=== PATIENT | female | born 1965 | race Caucasian/White ===

== ENCOUNTER → 2016-12-04 | Outpatient (CLI) | payer OTHER ==
--- NOTE | 2016-12-05 11:13 | MM ---
Reason for exam: screening (asymptomatic). Last mammogram was performed 1 year and 2 months ago. History: Patient is postmenopausal and is nulliparous. Family history of breast cancer in mother at age 67. Physical Findings: A clinical breast exam by your physician is recommended on an annual basis and results should be correlated with mammographic findings. MG 3D Screening Mammo W/Cad Bilateral CC and MLO view(s) were taken. Prior study comparison: October 09, 2015, bilateral MG screening mammo w CAD. September 06, 2014, bilateral MG screening mammo w CAD. September 05, 2013, bilateral digital screening mammo w/CAD. The breast tissue is almost entirely fat. No significant changes when compared with prior studies. ASSESSMENT: Negative, BI-RAD 1 RECOMMENDATION: Routine screening mammogram of both breasts in 1 year.
== END | disposition home or self-care (01) ==
LOC: RADMAMWWP 15:46
PROVIDERS: ATTEND Family Medicine
DX: Z12.31 Encounter for screening mammogram for malignant neoplasm of breast (principal)
CPT/HCPCS: 77063; G0202

== ENCOUNTER → 2017-08-06 | Outpatient (CLI) | payer OTHER ==
[2017-08-06 21:17] LABS: Hemoglobin A1C 6.4 % (4.2-6.1)
== END | disposition home or self-care (01) ==
LOC: LABWHC1 11:37
PROVIDERS: ATTEND Family Medicine
DX: E11.9 Type 2 diabetes mellitus without complications (principal)
CPT/HCPCS: 36415; 83036

== ENCOUNTER → 2018-01-09 | Outpatient (CLI) | payer OTHER ==
--- NOTE | 2018-01-11 12:17 | MM ---
Reason for exam: screening (asymptomatic). Last mammogram was performed 1 year and 1 month ago. History: Patient is postmenopausal and is nulliparous. Family history of breast cancer in mother at age 67. Physical Findings: A clinical breast exam by your physician is recommended on an annual basis and results should be correlated with mammographic findings. MG 3D Screening Mammo W/Cad Bilateral CC and MLO view(s) were taken. Prior study comparison: December 04, 2016, bilateral MG 3d screening mammo w/cad. October 09, 2015, bilateral MG screening mammo w CAD. There are scattered fibroglandular densities. Finding: There are stable typically benign calcifications in the upper inner quadrant of the right breast. No suspicious abnormality. No significant changes in finding since December 04, 2016 and October 09, 2015. ASSESSMENT: Benign, BI-RAD 2 RECOMMENDATION: Routine screening mammogram of both breasts in 1 year.
== END | disposition home or self-care (01) ==
LOC: RADMAMWWP 10:16
PROVIDERS: ATTEND Family Medicine
DX: Z12.31 Encounter for screening mammogram for malignant neoplasm of breast (principal)
CPT/HCPCS: 77063; 77067

== ENCOUNTER → 2019-02-25 | Outpatient (CLI) | payer OTHER ==
--- NOTE | 2019-03-01 09:39 | MM ---
Reason for exam: screening (asymptomatic). Last mammogram was performed 1 year and 2 months ago. History: Patient is postmenopausal and is nulliparous. Family history of breast cancer in mother at age 67. Physical Findings: A clinical breast exam by your physician is recommended on an annual basis and results should be correlated with mammographic findings. MG 3D Screening Mammo W/Cad Bilateral CC and MLO view(s) were taken. Prior study comparison: January 09, 2018, bilateral MG 3d screening mammo w/cad. December 04, 2016, bilateral MG 3d screening mammo w/cad. There are scattered fibroglandular densities. No significant changes when compared with prior studies. ASSESSMENT: Benign, BI-RAD 2 RECOMMENDATION: Routine screening mammogram of both breasts in 1 year.
== END | disposition home or self-care (01) ==
LOC: RADMAMWWP 13:51
PROVIDERS: ATTEND Family Medicine
DX: Z12.31 Encounter for screening mammogram for malignant neoplasm of breast (principal)
CPT/HCPCS: 77063; 77067

== ENCOUNTER 2019-04-08 07:19 | Day surgery (SDC) | payer OTHER ==
[2019-04-07 08:55] VITALS: BMI 34.7
[~2019-04-08 07:19] MED LIST: LACTATED RINGERS 1,000 ML IV SCH
[2019-04-08 07:54] VITALS: TEMP 96.7
[2019-04-08 07:57] LABS: Glucose,Whole Blood 116 mg/dL (75-99)
[2019-04-08] MEDS ORDERED: MIDAZOLAM 2 MG/2 ML VIAL ONE (08:27)
[2019-04-08] MEDS ORDERED: PROPOFOL 10 MG/ML 20 ML VIAL IV ONE (08:27)
[2019-04-08] MEDS ORDERED: fentaNYL (PF) 50 MCG/ML 2 ML AMP ONE (08:27)
--- NOTE | 2019-04-08 08:48 | P.PCN ---
Date of Procedure: 04/08/19 Procedure(s) Performed: Brief history: Patient is a pleasant 54-year-old white female, scheduled for an elective upper endoscopy as well as colonoscopy as a part of evaluation of history of GERD and surveillance of ulcerative colitis. 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 She is being maintained on balsalazide 3 tablets twice daily. If he has been having severe diarrhea but generally from 10-12 a day which are loose to watery in consistency and occasional blood in the stool. Procedure performed: Esophagogastroduodenoscopy with biopsy Colonoscopy with biopsy Preoperative diagnosis: GERD/history of ulcerative colitis/chronic diarrhea Anesthesia: [facility] [place] Procedure: After informed consent was obtained from the patient was brought into the endoscopy unit and IV sedation was administered by anesthesia under continuous monitoring. Initially upper endoscopy was done. The Olympus GF 160 video endoscope was inserted inserted into the mouth and esophagus intubated without any difficulty and was gradually advanced into the stomach and duodenum and carefully examined. The bulb and second part of the duodenum appeared normal. The scope was then withdrawn into the stomach adequately insufflated with air and upon careful examination the antrum and body, cardia and fundus appeared normal. Multiple small gastric polyps in the body and one in the antrum which was biopsied. The scope was then withdrawn into the esophagus. The GE junction was located at 40 cm to the incisors. It appeared regular with no erythema erosions or ulcerations. Rest of the esophagus appeared normal. Patient tolerated the procedure well. At this time the patient continued to remain sedation. Initial digital rectal examination was normal. Olympus CF 160 video colonoscope was then inserted into the rectum and gradually advanced to the cecum without any difficulty. Careful examination was performed as the scope was gradually being withdrawn. The prep was excellent. The cecum, ascending colon, transverse colon, had mild patchy areas of erythema and some granularity consistent with active colitis and biopsies were done from this area. There was moderate to severe colitis involving the descending colon, sigmoid colon and rectum with mucosal erythema, friability, granularity and spontaneous oozing and multiple biopsies were done from this area.. Retroflexion was performed in the rectum and no lesions were noted. Patient tolerated the procedure well. Impression: 1. Upper endoscopy revealed multiple small gastric polyps status post biopsy 2. Colonoscopy revealed diffuse pancolitis with mucosal erythema friability and granularity and spontaneous oozing mostly involving the rectum, sigmoid colon and left colon with mild involvement in the right colon. Status post multiple biopsies. Recommendations: Findings of this examination were discussed with the patient as well as a family. She was advised to follow with the biopsy results. She was advised to increase the balsalazide 3 capsules 3 times daily. She'll be started on oral prednisone 40 mg daily and would was advised to taper by 5 mg every week. She'll be seen in office in 2-3 weeks.
[2019-04-08 09:17] VITALS: BP 123/73; PULSE 90; RESP 18
== END 2019-04-08 09:25 | disposition home or self-care (01) ==
LOC: ORWHC2ENDO 07:19
PROVIDERS: ATTEND Internal Medicine Gastroenterology
DX: K31.7 Polyp of stomach and duodenum (principal); K29.50 Unspecified chronic gastritis without bleeding; K52.9 Noninfective gastroenteritis and colitis, unspecified; E11.9 Type 2 diabetes mellitus without complications; I10 Essential (primary) hypertension; Z79.84 Long term (current) use of oral hypoglycemic drugs; Z79.890 Hormone replacement therapy; Z79.899 Other long term (current) drug therapy; Z91.030 Bee allergy status
CPT/HCPCS: 88305; 45380; 43239; J2250; J3010; J2704

== ENCOUNTER → 2019-05-17 | Outpatient (CLI) | payer OTHER ==
[2019-05-17 18:36] LABS: Hepatitis B Core IgM Non-Reactive (Non-Reactive)
[2019-05-17 18:37] LABS: Hepatitis A Antibody IgM Non-Reactive (Non-Reactive)
[2019-05-17 21:59] LABS: Hemoglobin A1C 8.1 % (4.0-6.0)
== END | disposition home or self-care (01) ==
LOC: LABWHC1 11:09
PROVIDERS: ATTEND Physician Assistant
DX: E11.9 Type 2 diabetes mellitus without complications (principal); K51.20 Ulcerative (chronic) proctitis without complications
CPT/HCPCS: 36415; 80074; 83036; 86480

== ENCOUNTER → 2020-01-13 | Outpatient (CLI) | payer OTHER ==
[2020-01-13 16:24] LABS: African American GFR (CKD) 97.6 (60.0-200.0); Anion Gap 8.3 mmol/L (4.00-12.00); BUN/Creat Ratio 21.25 Ratio (12.00-20.00); Calcium 8.7 mg/dL (8.7-10.3); Carbon Dioxide 27.7 mmol/L (21.6-31.8); Chol/HDL Ratio 2.58; LDL Cholesterol,Calculated 93.6 mg/dL (0.0-131.0); Non-African American GFR(CKD) 84.2 (60.0-200.0); Potassium 4.3 mmol/L (3.5-5.5); VLDL Calculation 10.4 mg/dL (5.00-40.00)
== END | disposition home or self-care (01) ==
LOC: LABWHC1 11:07
PROVIDERS: ATTEND Physician Assistant
DX: I10 Essential (primary) hypertension (principal); E78.5 Hyperlipidemia, unspecified
CPT/HCPCS: 36415; 80048; 80061

== ENCOUNTER → 2020-05-18 | Outpatient (CLI) | payer OTHER ==
[2020-05-18 21:43] LABS: Hemoglobin A1C 6.9 % (4.0-6.0)
== END | disposition home or self-care (01) ==
LOC: LABWHC1 11:56
PROVIDERS: ATTEND Family Medicine
DX: E11.9 Type 2 diabetes mellitus without complications (principal)
CPT/HCPCS: 36415; 83036

== ENCOUNTER → 2020-08-01 | Outpatient (CLI) | payer OTHER ==
[2020-08-01 10:15] VITALS: BP 126/82; PULSE 77; RESP 18; TEMP 98.1
--- NOTE | 2020-08-01 11:06 | P.HPOB ---
History of Present Illness H&P Date: 08/01/20 Chief Complaint: The patient is here for her routine gynecologic exam and ma mmogram. This is a 54-year-old G0 with an LMP of 2000. The patient is here to establish with this office. It has been about 6 years since her last pelvic exam. She is without gynecologic complaints and denies any postmenopausal bleeding. Review of Systems Weight 10 still fluctuate by plus or minus 5-10 pounds. She denies respiratory or cardiac problems. GI: Occasional symptoms from her ulcerative colitis. Past Medical History Past Medical History: Diabetes Mellitus, GERD/Reflux, Hyperlipidemia, Hypertension, Osteoarthritis (OA), Sleep Apnea/CPAP/BIPAP, Thyroid Disorder Additional Past Medical History / Comment(s): Type 2 diabetes, seasonal ALLERGIES, ulcerative colitis, IBS, eczema rash, carpal tunnel syndrome, herniated disc, osteopenia, and hypothyroidism. 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 Premature menopause in her 30s. History of Any Multi-Drug Resistant Organisms: None Reported Past Surgical History: Cholecystectomy, Orthopedic Surgery Additional Past Surgical History / Comment(s): lt trigger thumb sx, laparoscopy, colonoscopy 2019(next after 1yr). Past Anesthesia/Blood Transfusion Reactions: Postoperative Nausea & Vomiting (PONV) Past Psychological History: No Psychological Hx Reported Smoking Status: Never smoker Past Alcohol Use History: Rare (Once a year) Past Drug Use History: None Reported Additional History: She is single and is not seeing anybody at this time. She has not been sexually active for many years. 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 - Past Family History Mother Family Medical History: Cancer, Coronary Artery Disease (CAD) Additional Family Medical History / Comment(s): breast cancer, CABG 5 vessels Father Family Medical History: Cancer, Diabetes Mellitus Additional Family Medical History / Comment(s): prostate cancer Brother(s) Family Medical History: Myocardial Infarction (ID) Sister(s) Family Medical History: Cancer, Hypertension, Neurologic Disorder Additional Family Medical History / Comment(s): MS and breast cancer. Medications and Allergies Home Medications Medication Instructions Recorded Confirmed Type Ascorbic Acid [Vitamin C with Nina 1,000 mg PO DAILY 04/07/19 04/08/19 History Hips] Atorvastatin [Lipitor] 40 mg PO DAILY 04/07/19 04/08/19 History Balsalazide Disodium [Colazal] 3 tab PO BID 04/07/19 04/08/19 History Cetirizine HCl [Zyrtec] 10 mg PO DAILY 04/07/19 04/08/19 History Cinnamon Bark [Cinnamon] 500 mg PO DAILY 04/07/19 04/08/19 History Dicyclomine HCl 20 mg PO QID 04/07/19 04/08/19 History Ertugliflozin Pidolate [Steglatro] 15 mg PO DAILY 04/07/19 04/08/19 History Fiber Well 5 gm PO DAILY 04/07/19 04/08/19 History Gabapentin [Neurontin] 100 mg PO BID 04/07/19 04/08/19 History Levothyroxine Sodium [Synthroid] 25 mcg PO DAILY 04/07/19 04/08/19 History Losartan [Cozaar] 50 mg PO DAILY 04/07/19 04/08/19 History Montelukast [Singulair] 10 mg PO DAILY 04/07/19 04/08/19 History Multivitamin [Multivitamins Adult 1 each PO DAILY 04/07/19 04/08/19 History Gummies] Omeprazole [PriLOSEC] 20 mg PO AC-BRKFST 04/07/19 04/08/19 History Pioglitazone HCl [Actos] 30 mg PO HS 04/07/19 04/08/19 History Repaglinide 0.5 mg PO BID 04/07/19 04/08/19 History Triamcinolone 0.1% Ointment 1 dose TOPICAL BID 04/07/19 04/08/19 History [Kenalog] Wheat Dextrin [Benefiber] 1 each PO DAILY 04/07/19 04/08/19 History sitaGLIPtin [Januvia] 100 mg PO DAILY 04/07/19 04/08/19 History Allergies Allergy/AdvReac Type Severity Reaction Status Date / Time bee venom protein (honey bee) Allergy Swelling Verified 08/01/20 10:15 Exam Vital Signs Temp Pulse Resp BP Pulse Ox 08/01/20 10:13 98.1 F 77 18 126/82 98 Intake and Output 07/31/20 08/01/20 08/01/20 22:59 06:59 14:59 Other: Weight 83.461 kg Height 5 feet 0 inches, weight 184 pounds, BMI 35.9. This is a well-developed well-nourished white female who is alert and oriented times 3 in no acute distress. HEENT: Within normal limits. NECK: Supple without mass or thyromegaly. CHEST AND LUNGS: Clear to auscultation. HEART: Regular rate and rhythm. BREASTS: Are without mass or discharge. AXILLARY EXAM: Negative for adenopathy. BACK: Negative for CVA tenderness. ABDOMEN: Soft, nontender, without palpable masses. PELVIC EXAM: Normal external genitalia with mild atrophy. Cervix and vagina appear normal with mild to moderate atrophy. The cervix is somewhat stenotic secondary to atrophy. There is no unusual discharge. There is no evidence of prolapse. The uterus is midposition, nongravid size and nontender. There are no palpable adnexal masses or tenderness. RECTAL EXAM: Rectovaginal exam is negative for mass or tenderness and is negative for occult blood. EXTREMITIES: Nontender. IMPRESSION: 1. 54-year-old menopausal female with normal gynecologic exam. 2. History of premature menopause. 3. History of osteopenia currently on medication as prescribed by her PCP. 4. Family history of breast cancer in her mother and sister. PLAN: 1. Pap smear was performed. 2. Self breast awareness was discussed with the patient. 3. Screening mammogram will be done today. 4. Genetic cancer screening was offered because of her family history of breast cancer in her mother and sister. She is declining this at this time, but states she may consider in the future. She was instructed to call if she changes her mind about this. 5. Osteoporosis prevention was discussed. I have stressed the importance of adequate calcium, vitamin D and regular exercise. Recommended amounts of calcium and vitamin D were also discussed. She will use the treatment as prescribed by her PCP and will do bone density testing through her PCP. 6. She was advised to return in one year for her annual well woman exam.
== END | disposition home or self-care (01) ==
LOC: WWCWWP 09:50
PROVIDERS: ATTEND Obstetrics & Gynecology
DX: Z53.9 Procedure and treatment not carried out, unspecified reason (principal)

== ENCOUNTER → 2020-08-22 | Outpatient (CLI) | payer OTHER ==
[2020-08-22 12:09] VITALS: BP 117/78; PULSE 64; RESP 18; TEMP 98.2
--- NOTE | 2020-08-22 13:19 | P.PN ---
Progress Note - Text Progress Note Date: 08/22/20 The patient is here for a repeat Pap smear. The Pap smear that was done on 08/22/2020 was canceled because of the thin prep vial was . Blood pressure 117/78, height 4 feet 11-1/2 inches, weight 188 pounds, BMI 37. Temperature 98.2, pulse 64, pulse oximeter 100%. Cervix and vagina reveal mild to moderate atrophy. The cervix is somewhat stenotic secondary to atrophy. There is no unusual discharge. Impression: Repeat Pap smear due to cytology medium. Plan: Await Pap smear cytology.
== END | disposition home or self-care (01) ==
LOC: WWCWWP 11:53
PROVIDERS: ATTEND Obstetrics & Gynecology
DX: Z53.9 Procedure and treatment not carried out, unspecified reason (principal)

== ENCOUNTER → 2021-08-02 | Outpatient (CLI) | payer OTHER ==
[2021-08-02 19:54] LABS: Hemoglobin A1C 6.4 % (4.0-6.0)
== END | disposition home or self-care (01) ==
LOC: LABWHC1 11:01
PROVIDERS: ATTEND Family Medicine
DX: E11.9 Type 2 diabetes mellitus without complications (principal)
CPT/HCPCS: 36415; 83036

== ENCOUNTER → 2021-09-26 | Outpatient (CLI) | payer OTHER ==
[2021-09-26 19:26] LABS: African American GFR (CKD) 93.6 (60.0-200.0); Albumin 3.5 g/dL (3.8-4.9); Albumin/Globulin Ratio 1.75 (1.60-3.17); BUN/Creat Ratio 14.09 Ratio (12.00-20.00); Blood Urea Nitrogen 11.6 mg/dL (9.0-27.0); C Reactive Protein 0.8 mg/dL (0.00-0.80); Calcium 8.6 mg/dL (8.7-10.3); Carbon Dioxide 25.4 mmol/L (21.6-31.8); Non-African American GFR(CKD) 80.8 (60.0-200.0); Potassium 4.7 mmol/L (3.5-5.5); Total Bilirubin 0.4 mg/dL (0.30-1.20); Total Protein 5.5 g/dL (6.2-8.2)
[2021-09-26 21:08] LABS: Basophils # (A) 0.03 X 10*3/uL (0.00-0.10); Basophils % (A) 0.5 %; Eosinophils # (A) 0.22 X 10*3/uL (0.04-0.35); Eosinophils % (A) 3.7 %; HCT 40.4 % (37.2-46.3); HGB 12.4 g/dL (12.0-15.0); Lymphocytes % (A) 25.1 %; MCH 28.4 pg (27.0-32.0); MCHC 30.7 g/dL (32.0-37.0); MCV 92.4 fL (80.0-97.0); Monocytes # (A) 0.56 X 10*3/uL (0.20-1.00); Monocytes % (A) 9.4 %; Neutrophils # (A) 3.66 X 10*3/uL (1.80-7.70); Neutrophils % (A) 61.1 %; Platelet Count 342 X 10*3/uL (140-440); RBC 4.37 X 10*6/uL (4.10-5.20); RDW 13.5 % (11.5-14.5); WBC 5.98 X 10*3/uL (4.50-10.00)
[2021-09-26 21:54] LABS: Erythrocyte Sedimentation Rate 10 mm/Hr (0-30)
== END | disposition home or self-care (01) ==
LOC: LABWHC1 10:21
PROVIDERS: ATTEND Internal Medicine Gastroenterology
DX: K51.90 Ulcerative colitis, unspecified, without complications (principal)
CPT/HCPCS: 36415; 80053; 83993; 85025; 85652; 86140; 87324

== ENCOUNTER → 2021-10-08 | Outpatient (CLI) | payer OTHER ==
[2021-10-08 11:14] VITALS: BP 126/83; PULSE 75; RESP 18; TEMP 97.8
--- NOTE | 2021-10-08 12:02 | P.HPOB ---
History of Present Illness H&P Date: 10/08/21 Chief Complaint: The patient is here for her routine gynecologic exam and ma mmogram. This is a 55-year-old G0 with an LMP of 2000. The patient is without gynecologic complaints and denies any postmenopausal bleeding. Review of Systems The patient's weight has been stable over the last year. She denies respiratory, cardiac, or G.I. problems. Past Medical History Past Medical History: Diabetes Mellitus, GERD/Reflux, Hyperlipidemia, Hypertension, Thyroid Disorder Additional Past Medical History / Comment(s): Type 2 diabetes, ulcerative colitis,IBS, eczema rash, carpal tunnel syndrome, herniated disc, osteopenia, and hypothyroidism. 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 Premature menopause in her 30s. History of Any Multi-Drug Resistant Organisms: None Reported Past Surgical History: Cholecystectomy, Orthopedic Surgery Additional Past Surgical History / Comment(s): lt trigger thumb, laparoscopy, colonoscopy 2019(next after 3yr). Past Anesthesia/Blood Transfusion Reactions: Postoperative Nausea & Vomiting (PONV) Past Psychological History: No Psychological Hx Reported Smoking Status: Never smoker Past Alcohol Use History: Rare Past Drug Use History: None Reported Additional History: She is single and is not seeing anybody at this time and has not been sexually active for many years. 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 - Past Family History Mother Family Medical History: Cancer, Coronary Artery Disease (CAD) Additional Family Medical History / Comment(s): breast cancer, CABG 5 vessels Father Family Medical History: Cancer, Diabetes Mellitus Additional Family Medical History / Comment(s): prostate cancer Brother(s) Family Medical History: Myocardial Infarction (NH) Sister(s) Family Medical History: Cancer, Hypertension, Neurologic Disorder Additional Family Medical History / Comment(s): MS and breast cancer. Medications and Allergies Home Medications Medication Instructions Recorded Confirmed Type Ascorbic Acid [Vitamin C with Nina 1,000 mg PO DAILY 04/07/19 10/08/21 History Hips] Atorvastatin [Lipitor] 40 mg PO PC-SUPPER 04/07/19 10/08/21 History Cetirizine HCl [Zyrtec] 20 mg PO DAILY 04/07/19 10/08/21 History Cinnamon Bark [Cinnamon] 500 mg PO DAILY 04/07/19 10/08/21 History Dicyclomine HCl 20 mg PO QID 04/07/19 10/08/21 History Ertugliflozin Pidolate [Steglatro] 15 mg PO QAM 04/07/19 10/08/21 History Fiber Well 5 gm PO DAILY 04/07/19 10/08/21 History Gabapentin [Neurontin] 300 mg PO BID 04/07/19 10/08/21 History Levothyroxine Sodium [Synthroid] 25 mcg PO QAM 04/07/19 10/08/21 History Losartan [Cozaar] 50 mg PO QAM 04/07/19 10/08/21 History Montelukast [Singulair] 10 mg PO DAILY 04/07/19 10/08/21 History Multivitamin [Multivitamins Adult 1 each PO DAILY 04/07/19 10/08/21 History Gummies] Omeprazole [PriLOSEC] 20 mg PO AC-BRKFST 04/07/19 10/08/21 History Pioglitazone HCl [Actos] 30 mg PO HS 04/07/19 10/08/21 History Repaglinide 0.5 mg PO BID 04/07/19 10/08/21 History Triamcinolone 0.1% Ointment 1 dose TOPICAL BID PRN 04/07/19 10/08/21 History [Kenalog 0.1% Ointment] Wheat Dextrin [Benefiber] 1 each PO DAILY 04/07/19 10/08/21 History Adalimumab [Humira Pen] 40 mg SQ [id number] 08/01/20 10/08/21 History Alogliptin Benzoate [Alogliptin] 25 mg PO QAM 08/01/20 10/08/21 History Betamethasone Dipropionate 1 applic TOPICAL BID PRN 08/01/20 10/08/21 History [Diprolene AF 0.05% Cream] Calcitonin Nasal [Fortical 1 spray NASAL DAILY 08/01/20 10/08/21 History (Miacalcin)] Calcium Carbonate/Vitamin D3 1 each PO QAM 08/01/20 10/08/21 History [Calcium 600 mg-Vit D3 10Mcg (400 Unit)] Celecoxib [CeleBREX] 200 mg PO DAILY 08/01/20 10/08/21 History Ibuprofen 800 mg PO Q8H 08/01/20 10/08/21 History Mesalamine [Mesalamine Dr] 1,600 mg PO QAM 08/01/20 10/08/21 History Turmeric Cucurmin 500 mg PO QAM 08/01/20 10/08/21 History hydrOXYzine HCL 10 mg PO Q6HR PRN 08/01/20 10/08/21 History predniSONE 10 mg PO DAILY 10/08/21 10/08/21 History Allergies Allergy/AdvReac Type Severity Reaction Status Date / Time bee venom protein (honey bee) Allergy Swelling Verified 10/08/21 11:10 Exam Vital Signs Temp Pulse Resp BP Pulse Ox 10/08/21 11:10 97.8 F 75 18 126/83 100 Intake and Output 10/07/21 10/08/21 10/08/21 22:59 06:59 14:59 Other: Weight 83.915 kg Height 5 feet 0 inches, weight 185 pounds, BMI 36.1. This is a well-developed well-nourished white female who is alert and oriented times 3 in no acute distress. HEENT: Within normal limits. NECK: Supple without mass or thyromegaly. CHEST AND LUNGS: Clear to auscultation. HEART: Regular rate and rhythm. BREASTS: Are without mass or discharge. AXILLARY EXAM: Negative for adenopathy. BACK: Negative for CVA tenderness. ABDOMEN: Soft, nontender, without palpable masses. PELVIC EXAM: Normal external genitalia with mild atrophy. Cervix and vagina appear normal with mild to moderate atrophy. There is no unusual discharge. There is no evidence of prolapse. The uterus is midposition, nongravid size and nontender. There are no palpable adnexal masses or tenderness. RECTAL EXAM: Rectovaginal exam is negative for mass or tenderness and is negative for occult blood. EXTREMITIES: Nontender. IMPRESSION: 1. 55-year-old menopausal female with normal gynecologic exam. 2. History of osteopenia and is no longer using the nasal spray for this. Bone density testing and treatment has been done through her PCP. 3. Family history of breast cancer in her mother and sister. PLAN: 1. Pap smear was deferred since she had a normal one on 08/22/2020. 2. Self breast awareness was discussed with the patient. We have also discussed symptoms associated with inflammatory breast cancer. 3. Screening mammogram will be done today. 4. Osteoporosis prevention was discussed. I have stressed the importance of adequate calcium, vitamin D and regular exercise. Recommended amounts of calcium and vitamin D were also discussed. She states a bone density test was recently done through her PCP at [facility]. She has an appointment to discuss the results with him in the near future. 5. We have again discussed cancer genetic counseling and testing. She understands this can be done from her home with the [facility]. She is declining this at this time. She will let me know if she changes her mind. 6. She has completed her Covid vaccination series and plans to get the booster in the near future. She also did receive her flu shot this fall. 7. She was advised to return in one year for her annual well woman exam.
--- NOTE | 2021-10-10 11:54 | MM ---
Reason for exam: screening (asymptomatic). Last mammogram was performed 1 year and 2 months ago. History: Patient is postmenopausal and is nulliparous. Family history of breast cancer in mother at age 67 and breast cancer in sister at age 59. Physical Findings: A clinical breast exam by your physician is recommended on an annual basis and results should be correlated with mammographic findings. MG 3D Screening Mammo W/Cad Bilateral CC and MLO view(s) were taken. XCCL view(s) were taken of the left breast. Prior study comparison: August 01, 2020, bilateral MG 3d screening mammo w/cad. February 25, 2019, bilateral MG 3d screening mammo w/cad. There are scattered fibroglandular densities. No significant changes when compared with prior studies. ASSESSMENT: Benign, BI-RAD 2 RECOMMENDATION: Routine screening mammogram of both breasts in 1 year.
== END ==
LOC: WWCWWP 11:00
PROVIDERS: ATTEND Obstetrics & Gynecology
DX: Z12.31 Encounter for screening mammogram for malignant neoplasm of breast (principal); Z01.419 Encounter for gynecological examination (general) (routine) without abnormal findings; E11.9 Type 2 diabetes mellitus without complications; E78.5 Hyperlipidemia, unspecified; I10 Essential (primary) hypertension; E03.9 Hypothyroidism, unspecified; K21.9 Gastro-esophageal reflux disease without esophagitis; Z80.3 Family history of malignant neoplasm of breast; Z87.39 Personal history of other diseases of the musculoskeletal system and connective tissue; Z79.899 Other long term (current) drug therapy; Z91.030 Bee allergy status
CPT/HCPCS: 77063; 77067

== ENCOUNTER → 2021-11-27 | Outpatient (CLI) | payer OTHER ==
[2021-11-27 23:53] LABS: Basophils # (A) 0.05 X 10*3/uL (0.00-0.10); Basophils % (A) 0.7 %; Eosinophils # (A) 0.11 X 10*3/uL (0.04-0.35); Eosinophils % (A) 1.5 %; HCT 40.4 % (37.2-46.3); HGB 12.2 g/dL (12.0-15.0); Lymphocytes # (A) 1.85 X 10*3/uL (0.90-5.00); Lymphocytes % (A) 25.3 %; MCH 27.5 pg (27.0-32.0); MCHC 30.2 g/dL (32.0-37.0); MCV 91.2 fL (80.0-97.0); Mean Platelet Volume 9.1 fL (9.5-12.2); Monocytes # (A) 0.61 X 10*3/uL (0.20-1.00); Monocytes % (A) 8.4 %; Neutrophils # (A) 4.64 X 10*3/uL (1.80-7.70); Neutrophils % (A) 63.6 %; Platelet Count 366 X 10*3/uL (140-440); RBC 4.43 X 10*6/uL (4.10-5.20); RDW 13.5 % (11.5-14.5)
[2021-11-27 23:55] LABS: Albumin 3.9 g/dL (3.8-4.9); Albumin/Globulin Ratio 1.58 (1.60-3.17); Anion Gap 10.3 mmol/L (10.00-18.00); BUN/Creat Ratio 19.97 Ratio (12.00-20.00); Blood Urea Nitrogen 15.7 mg/dL (9.0-27.0); C Reactive Protein 0.9 mg/dL (0.00-0.80); Calcium 8.7 mg/dL (8.7-10.3); Carbon Dioxide 26.2 mmol/L (20.0-27.5); Globulin 2.4 g/dL (1.6-3.3); Non-African American GFR(CKD) 85.4 (60.0-200.0); Potassium 4.4 mmol/L (3.5-5.5); Total Bilirubin 0.2 mg/dL (0.30-1.20); Total Protein 6.3 g/dL (6.2-8.2)
[2021-11-28 02:12] LABS: Erythrocyte Sedimentation Rate 20 mm/Hr (0-30)
== END | disposition home or self-care (01) ==
LOC: LABWHC1 14:51
PROVIDERS: ATTEND Internal Medicine Gastroenterology
DX: K51.90 Ulcerative colitis, unspecified, without complications (principal)
CPT/HCPCS: 36415; 80053; 82542; 82657; 85025; 85652; 86140

== ENCOUNTER → 2022-02-26 | Outpatient (CLI) | payer OTHER ==
[2022-02-26 19:00] LABS: Basophils # (A) 0.05 X 10*3/uL (0.00-0.10); Basophils % (A) 0.6 %; Eosinophils % (A) 1.2 %; HCT 41.4 % (37.2-46.3); HGB 12.2 g/dL (12.0-15.0); Immature Grans, Automated 0.7 %; Lymphocytes # (A) 2.61 X 10*3/uL (0.90-5.00); Lymphocytes % (A) 30.1 %; MCH 27.5 pg (27.0-32.0); MCHC 29.5 g/dL (32.0-37.0); MCV 93.2 fL (80.0-97.0); Mean Platelet Volume 9.5 fL (9.5-12.2); Monocytes # (A) 0.63 X 10*3/uL (0.20-1.00); Monocytes % (A) 7.3 %; NRBC Per 100 WBC 0 /100 WBCS (0.0-0.0); Neutrophils # (A) 5.23 X 10*3/uL (1.80-7.70); Neutrophils % (A) 60.1 %; Platelet Count 309 X 10*3/uL (140-440); RBC 4.44 X 10*6/uL (4.10-5.20); RDW 16.1 % (11.5-14.5); WBC 8.68 X 10*3/uL (4.50-10.00)
[2022-02-26 19:11] LABS: ALT 26 U/L (8-44); AST 14 U/L (13-35); African American GFR (CKD) 98.1 (60.0-200.0); Albumin 4.5 g/dL (3.8-4.9); Albumin/Globulin Ratio 2.35 (1.60-3.17); Alkaline Phosphatase 72 U/L (41-126); BUN/Creat Ratio 23.89 Ratio (12.00-20.00); Blood Urea Nitrogen 18.8 mg/dL (9.0-27.0); C Reactive Protein <0.30 mg/dL (0.00-0.80); Calcium 8.8 mg/dL (8.7-10.3); Carbon Dioxide 25.1 mmol/L (20.0-27.5); Chloride 102 mmol/L (96-109); Globulin 1.9 g/dL (1.6-3.3); Glucose 174 mg/dL (70-110); Non-African American GFR(CKD) 84.7 (60.0-200.0); Potassium 4.2 mmol/L (3.5-5.5); Sodium 139 mmol/L (135-145); Total Protein 6.4 g/dL (6.2-8.2)
[2022-02-26 19:31] LABS: Erythrocyte Sedimentation Rate 6 mm/Hr (0-30)
== END | disposition home or self-care (01) ==
LOC: LABWHC1 10:23
PROVIDERS: ATTEND Internal Medicine Gastroenterology
DX: K51.90 Ulcerative colitis, unspecified, without complications (principal)
CPT/HCPCS: 36415; 80053; 85025; 85652; 86140

== ENCOUNTER → 2022-03-13 | Outpatient (CLI) | payer OTHER ==
[~2022-03-13] MED LIST changes: -LACTATED RINGERS 1,000 ML IV SCH; +SODIUM CHLORIDE 0.9% 500 ML 500 ML in EMPTY BAG 1 BAG IV PRN; +ZOLEDRONIC ACID 5 MG in SODIUM CHLORIDE 0.9% 100 ML IV NR
[2022-03-13 10:01] VITALS: BP 133/83; PULSE 74; RESP 16; TEMP 98
== END ==
LOC: PROCWHC3 09:45
PROVIDERS: ATTEND Internal Medicine
DX: M81.0 Age-related osteoporosis without current pathological fracture (principal); Z91.030 Bee allergy status
CPT/HCPCS: 96365; J3489

== ENCOUNTER → 2022-06-18 | Outpatient (CLI) | payer OTHER ==
[2022-06-18 14:37] LABS: Basophils # (A) 0.05 X 10*3/uL (0.00-0.10); Basophils % (A) 0.6 %; Eosinophils % (A) 1.2 %; HGB 11.6 g/dL (12.0-15.0); Immature Grans, Automated 0.2 %; Lymphocytes # (A) 1.37 X 10*3/uL (0.90-5.00); Lymphocytes % (A) 16.4 %; MCHC 30.5 g/dL (32.0-37.0); MCV 88.4 fL (80.0-97.0); Mean Platelet Volume 9.2 fL (9.5-12.2); Monocytes # (A) 0.64 X 10*3/uL (0.20-1.00); Monocytes % (A) 7.7 %; NRBC Per 100 WBC 0 /100 WBCS (0.0-0.0); Neutrophils # (A) 6.16 X 10*3/uL (1.80-7.70); Neutrophils % (A) 73.9 %; Platelet Count 360 X 10*3/uL (140-440); RDW 14.6 % (11.5-14.5); WBC 8.34 X 10*3/uL (4.50-10.00)
[2022-06-18 16:00] LABS: African American GFR (CKD) 101.7 (60.0-200.0); Albumin 4.1 g/dL (3.8-4.9); Albumin/Globulin Ratio 1.67 (1.60-3.17); Anion Gap 9.6 mmol/L (10.00-18.00); BUN/Creat Ratio 22.25 Ratio (12.00-20.00); Calcium 8.9 mg/dL (8.7-10.3); Carbon Dioxide 27.7 mmol/L (20.0-27.5); Globulin 2.5 g/dL (1.6-3.3); Non-African American GFR(CKD) 87.8 (60.0-200.0); Potassium 4.6 mmol/L (3.5-5.5); Total Bilirubin 0.4 mg/dL (0.30-1.20); Total Protein 6.6 g/dL (6.2-8.2)
== END | disposition home or self-care (01) ==
LOC: LABWHC1 10:48
PROVIDERS: ATTEND Internal Medicine Gastroenterology
DX: K51.90 Ulcerative colitis, unspecified, without complications (principal)
CPT/HCPCS: 36415; 80053; 85025; 86480

== ENCOUNTER → 2022-07-25 | Outpatient (CLI) | payer OTHER ==
[2022-07-25 19:32] LABS: Hepatitis B Surface Antigen Nonreactive (Nonreactive)
== END | disposition home or self-care (01) ==
LOC: LABWHC1 14:28
PROVIDERS: ATTEND Internal Medicine Gastroenterology
DX: K51.90 Ulcerative colitis, unspecified, without complications (principal)
CPT/HCPCS: 36415; 86704; 87340

== ENCOUNTER → 2022-09-03 | Outpatient (CLI) | payer OTHER ==
[2022-09-03 16:08] LABS: Basophils # (A) 0.08 X 10*3/uL (0.00-0.10); Basophils % (A) 0.7 %; Eosinophils # (A) 0.11 X 10*3/uL (0.04-0.35); HCT 38.6 % (37.2-46.3); HGB 12.2 g/dL (12.0-15.0); Immature Grans, Automated 0.9 %; Lymphocytes # (A) 3.96 X 10*3/uL (0.90-5.00); Lymphocytes % (A) 35.4 %; MCHC 31.6 g/dL (32.0-37.0); MCV 85.4 fL (80.0-97.0); Mean Platelet Volume 9.9 fL (9.5-12.2); Monocytes # (A) 0.89 X 10*3/uL (0.20-1.00); Monocytes % (A) 7.9 %; NRBC Per 100 WBC 0 /100 WBCS (0.0-0.0); Neutrophils # (A) 6.06 X 10*3/uL (1.80-7.70); Neutrophils % (A) 54.1 %; Platelet Count 318 X 10*3/uL (140-440); RBC 4.52 X 10*6/uL (4.10-5.20); RDW 15.8 % (11.5-14.5)
[2022-09-03 16:45] LABS: ALT 18 U/L (8-44); AST 10 U/L (13-35); Albumin 4.3 g/dL (3.8-4.9); Alkaline Phosphatase 60 U/L (41-126); BUN/Creat Ratio 26.51 Ratio (12.00-20.00); Calcium 8.7 mg/dL (8.7-10.3); Carbon Dioxide 30.2 mmol/L (20.0-27.5); Chloride 101 mmol/L (96-109); Chol/HDL Ratio 2.21 Ratio; Globulin 2.1 g/dL (1.6-3.3); Glucose 111 mg/dL (70-110); Iron 39 ug/dL (50-170); LDL Cholesterol,Calculated 107.1 mg/dL (0.0-131.0); Non-African American GFR(CKD) 79.4 (60.0-200.0); Potassium 4.3 mmol/L (3.5-5.5); Sodium 138 mmol/L (135-145); Total Protein 6.4 g/dL (6.2-8.2)
== END | disposition home or self-care (01) ==
LOC: LABWHC1 10:01
PROVIDERS: ATTEND Internal Medicine Gastroenterology
DX: I10 Essential (primary) hypertension (principal); E78.5 Hyperlipidemia, unspecified; K51.90 Ulcerative colitis, unspecified, without complications; M81.0 Age-related osteoporosis without current pathological fracture; E55.9 Vitamin D deficiency, unspecified; E11.9 Type 2 diabetes mellitus without complications; G62.9 Polyneuropathy, unspecified; E03.9 Hypothyroidism, unspecified; E78.00 Pure hypercholesterolemia, unspecified
CPT/HCPCS: 36415; 80053; 80061; 82306; 82607; 83036; 83540; 84443; 85025

== ENCOUNTER → 2022-10-15 | Outpatient (CLI) | payer OTHER ==
[2022-10-15 10:50] VITALS: BP 116/78; PULSE 79; RESP 17; TEMP 97.9
--- NOTE | 2022-10-15 11:36 | P.HPOB ---
History of Present Illness H&P Date: 10/15/22 Chief Complaint: The patient is here for her routine gynecologic exam and ma mmogram. This is a 56-year-old G0 with an LMP of 1999. The patient is without gynecologic complaints and denies any postmenopausal bleeding. Review of Systems She has gained about 18 pounds of the past year. Respiratory: Occasional cough and occasionally her breathing can feel heavy. She denies cardiac or GI problems. Past Medical History Past Medical History: Diabetes Mellitus, GERD/Reflux, Hyperlipidemia, Hypertension, Thyroid Disorder Additional Past Medical History / Comment(s): Type 2 diabetes, ulcerative colitis,IBS, eczema rash, carpal tunnel syndrome, herniated disc, osteoporosis (on Reclast), and hypothyroidism. 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 Premature menopause in her 30s. History of Any Multi-Drug Resistant Organisms: None Reported Past Surgical History: Cholecystectomy, Orthopedic Surgery Additional Past Surgical History / Comment(s): lt trigger thumb, laparoscopy, colonoscopy and upper endoscopy 2021(next colonoscopy after 3yr). Past Anesthesia/Blood Transfusion Reactions: Postoperative Nausea & Vomiting (PONV) Past Psychological History: No Psychological Hx Reported Smoking Status: Never smoker Past Alcohol Use History: Rare (One per year) Past Drug Use History: None Reported Additional History: She is single and is not seeing anybody at this time and has not been sexually active for many years. 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 - Past Family History Mother Family Medical History: Cancer, Coronary Artery Disease (CAD), Myocardial Infarction ([place]) Additional Family Medical History / Comment(s): breast cancer, CABG 5 vessels Father Family Medical History: Cancer, Congestive Heart Failure (CHF), Diabetes Mellitus Additional Family Medical History / Comment(s): prostate cancer Brother(s) Family Medical History: Myocardial Infarction ([place]) Sister(s) Family Medical History: Cancer, Hypertension, Neurologic Disorder Additional Family Medical History / Comment(s): MS and breast cancer. Medications and Allergies Home Medications Medication Instructions Recorded Confirmed Type Ascorbic Acid [Vitamin C with Nina 1,000 mg PO DAILY 04/07/19 03/13/22 History Hips] Cetirizine HCl [Zyrtec] 20 mg PO DAILY 04/07/19 03/13/22 History Dicyclomine HCl 20 mg PO QID 04/07/19 03/13/22 History Ertugliflozin Pidolate [Steglatro] 15 mg PO QAM 04/07/19 03/13/22 History Fiber Well 5 gm PO DAILY 04/07/19 03/13/22 History Gabapentin [Neurontin] 300 mg PO BID 04/07/19 03/13/22 History Levothyroxine Sodium [Synthroid] 25 mcg PO QAM 04/07/19 03/13/22 History Losartan [Cozaar] 50 mg PO QAM 04/07/19 03/13/22 History Montelukast [Singulair] 10 mg PO DAILY 04/07/19 03/13/22 History Multivitamin [Multivitamins Adult 1 each PO DAILY 04/07/19 03/13/22 History Gummies] Omeprazole [PriLOSEC] 20 mg PO AC-BRKFST 04/07/19 03/13/22 History Pioglitazone HCl [Actos] 30 mg PO HS 04/07/19 03/13/22 History Repaglinide 0.5 mg PO BID 04/07/19 03/13/22 History Triamcinolone 0.1% Ointment 1 dose TOPICAL BID PRN 04/07/19 03/13/22 History [Kenalog 0.1% Ointment] Wheat Dextrin [Benefiber] 1 each PO DAILY 04/07/19 03/13/22 History Adalimumab [Humira Pen] 40 mg SQ [id number] 08/01/20 03/13/22 History Alogliptin Benzoate [Alogliptin] 25 mg PO QAM 08/01/20 03/13/22 History Betamethasone Dipropionate 1 applic TOPICAL BID PRN 08/01/20 03/13/22 History [Diprolene AF 0.05% Cream] Calcitonin Nasal [Fortical 1 spray NASAL DAILY 08/01/20 03/13/22 History (Miacalcin)] Calcium Carbonate/Vitamin D3 1 each PO QAM 08/01/20 03/13/22 History [Calcium 600 mg-Vit D3 10Mcg (400 Unit)] Celecoxib [CeleBREX] 200 mg PO DAILY 08/01/20 03/13/22 History Ibuprofen 800 mg PO Q8H 08/01/20 03/13/22 History Mesalamine [Mesalamine Dr] 1,600 mg PO QAM 08/01/20 03/13/22 History Turmeric Cucurmin 500 mg PO QAM 08/01/20 03/13/22 History hydrOXYzine HCL 10 mg PO Q6HR PRN 08/01/20 03/13/22 History predniSONE 10 mg PO DAILY 10/08/21 03/13/22 History azaTHIOprine [Imuran] 100 mg PO DAILY 03/13/22 03/13/22 History Infliximab-Dyyb [Inflectra] 1 injection IV DIRECTED 10/15/22 10/15/22 History Allergies Allergy/AdvReac Type Severity Reaction Status Date / Time bee venom protein (honey bee) Allergy Swelling Verified 10/15/22 10:45 Exam Vital Signs Temp Pulse Resp BP Pulse Ox 10/15/22 10:47 97.9 F 79 17 116/78 97 Intake and Output 10/14/22 10/15/22 10/15/22 22:59 06:59 14:59 Other: Weight 92.079 kg Height 4 feet 9 inches, weight 203 pounds, BMI 43.9. This is a well-developed well-nourished heavyset white female who is alert and oriented times 3 in no acute distress. HEENT: Within normal limits. NECK: Supple without mass or thyromegaly. CHEST AND LUNGS: Clear to auscultation. HEART: Regular rate and rhythm. BREASTS: Are without mass or discharge. AXILLARY EXAM: Negative for adenopathy. BACK: Negative for CVA tenderness. ABDOMEN: Soft, nontender, without palpable masses. PELVIC EXAM: Normal external genitalia with mild atrophy. Cervix and vagina appear normal with mild atrophy. There is no unusual discharge. There is no evidence of prolapse. The uterus is midposition, nongravid size and nontender. There are no palpable adnexal masses or tenderness. Bimanual examination is somewhat limited secondary to her size. RECTAL EXAM: Rectovaginal exam is negative for mass or tenderness and is negative for occult blood. EXTREMITIES: Nontender. IMPRESSION: 1. 56-year-old menopausal female with normal gynecologic exam. 2. History of osteoporosis managed by her PCP. She states she is currently getting Reclast infusions yearly. 3. Family history of breast cancer in her mother and sister. She is declining genetic cancer testing at this time. PLAN: 1. Pap smear test was performed. Her last Pap smear was negative on 08/22/2020. 2. Self breast awareness was discussed with the patient. We have also discussed symptoms associated with inflammatory breast cancer. 3. Screening mammogram will be done today. 4. Osteoporosis management was discussed. I have stressed the importance of adequate calcium, vitamin D and regular exercise. Recommended amounts of calcium and vitamin D were also discussed. She will continue to be treated for osteoporosis through her PCP. She states a bone density test was done through her PCP at [facility]. 5. If she is having respiratory issues, she will see her PCP. 6. She again has declined genetic cancer testing. She understands she is at greater risk for breast cancer because of her family history. She will let me know if she changes her mind about this kind of testing. 7. She has completed her Covid vaccination series and has not received a booster. She states she would like to get a booster in the future. 8. She was advised to return in one year for her annual well woman exam.
--- NOTE | 2022-10-16 18:33 | MM ---
Reason for Exam: Screening (asymptomatic). Last mammogram was performed 1 year(s) and 1 month(s) ago. Patient History: Menarche at age 10. Patient has no children. Postmenopausal. Previous chemotherapy. Sister had breast cancer, age 59. Mother had breast cancer, age 67. Risk Values: Shameka 5 year model risk: 4.5%. NCI Lifetime model risk: 27.8%. Prior Study Comparison: 02/25/2019 Bilateral Screening Mammogram, [facility]. 08/01/2020 Bilateral Screening Mammogram, [facility]. 10/08/2021 Bilateral Screening Mammogram, [facility]. Tissue Density: There are scattered fibroglandular densities. Findings: Analyzed By CAD. There is no suspicious group of microcalcifications or new suspicious mass in either breast. Overall Assessment: Benign, BI-RAD 2 Management: Screening Mammogram of both breasts in 1 year. 1. Note the patient's very high Shameka score and overall lifetime risk for the development of breast cancer. Consider specialist referral to assess eligibility for a risk reducing agent. In addition, the patient may qualify for future screening with alternating mammogram and breast MRI. 2. Patient should continue monthly self breast exams. 3. This exam should not preclude additional follow-up of suspicious palpable abnormalities. Electronically signed and approved by: Kimberly Baldwin M.D. Radiologist
== END ==
LOC: WWCWWP 10:37
PROVIDERS: ATTEND Obstetrics & Gynecology
DX: Z01.419 Encounter for gynecological examination (general) (routine) without abnormal findings (principal); Z12.31 Encounter for screening mammogram for malignant neoplasm of breast; Z78.0 Asymptomatic menopausal state; Z87.39 Personal history of other diseases of the musculoskeletal system and connective tissue; Z80.3 Family history of malignant neoplasm of breast; Z91.030 Bee allergy status
CPT/HCPCS: 77063; 77067

== ENCOUNTER → 2022-12-12 | Outpatient (CLI) | payer OTHER | END | disposition home or self-care (01) | LOC: LABWHC1 09:56 | PROVIDERS: ATTEND Family Medicine | DX: E11.9 Type 2 diabetes mellitus without complications (principal) | CPT/HCPCS: 36415; 83036 ==

== ENCOUNTER → 2023-11-25 | Outpatient (CLI) | payer OTHER ==
[2023-11-25 10:25] VITALS: BP 127/81; PULSE 75; RESP 17; TEMP 97.8
--- NOTE | 2023-11-25 10:40 | P.HPOB ---
History of Present Illness H&P Date: 11/25/23 Chief Complaint: The patient is here for her routine gynecologic exam and ma mmogram. This is a 57-year-old G0 with an LMP of 1999. The patient is without gynecologic complaints. Review of Systems She has lost about 9 pounds over the past year. She denies respiratory problems. Cardiac: She has noticed occasional palpitations and is currently wearing a 2 week monitor as part of the workup. GI: Occasionally feels like food is not going down smoothly when she swallows and has seen a GI doctor for this. Past Medical History Past Medical History: Diabetes Mellitus, GERD/Reflux, Hyperlipidemia, Hyperten pierre, Thyroid Disorder Additional Past Medical History / Comment(s): Type 2 diabetes, ulcerative colitis,IBS, eczema rash, carpal tunnel syndrome, herniated disc, osteoporosis (on Reclast since 2021), and hypothyroidism. 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 Premature menopause in her 30s. History of Any Multi-Drug Resistant Organisms: None Reported Past Surgical History: Cholecystectomy, Orthopedic Surgery Additional Past Surgical History / Comment(s): lt trigger thumb, laparoscopy, co lonoscopy and upper endoscopy 2021(next colonoscopy after 3yr). Past Anesthesia/Blood Transfusion Reactions: Postoperative Nausea & Vomiting (PONV) Past Psychological History: No Psychological Hx Reported Smoking Status: Never smoker Past Alcohol Use History: Rare (0-2 drinks per year.) Past Drug Use History: None Reported Additional History: She is single and is not sexually active. 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 She lives with her sister that she cares for. - Past Family History Mother Family Medical History: Cancer, Coronary Artery Disease (CAD), Myocardial Infarction ([place]) Additional Family Medical History / Comment(s): breast cancer, CABG 5 vessels Father Family Medical History: Cancer, Congestive Heart Failure (CHF), Diabetes Mellitus Additional Family Medical History / Comment(s): prostate cancer Brother(s) Family Medical History: Myocardial Infarction ([place]) Sister(s) Family Medical History: Cancer, Hypertension, Neurologic Disorder Additional Family Medical History / Comment(s): MS and breast cancer. Medications and Allergies Home Medications Medication Instructions Recorded Confirmed Type Ascorbic Acid [Vitamin C with Nina 1,000 mg PO DAILY 04/07/19 11/25/23 History Hips] Cetirizine HCl [Zyrtec] 20 mg PO DAILY 04/07/19 11/25/23 History Dicyclomine HCl 20 mg PO QID 04/07/19 11/25/23 History Gabapentin [Neurontin] 300 mg PO BID 04/07/19 11/25/23 History Levothyroxine Sodium [Synthroid] 25 mcg PO QAM 04/07/19 11/25/23 History Losartan [Cozaar] 50 mg PO QAM 04/07/19 11/25/23 History Montelukast [Singulair] 10 mg PO DAILY 04/07/19 11/25/23 History Multivitamin [Multivitamins Adult 1 each PO DAILY 04/07/19 11/25/23 History Gummies] Omeprazole [PriLOSEC] 20 mg PO AC-BRKFST 04/07/19 11/25/23 History Repaglinide 0.5 mg PO BID 04/07/19 11/25/23 History Wheat Dextrin [Benefiber] 1 each PO DAILY 04/07/19 11/25/23 History Calcium Carbonate/Vitamin D3 1 each PO QAM 08/01/20 11/25/23 History [Calcium 600 mg-Vit D3 10Mcg (400 Unit)] Ibuprofen 800 mg PO Q8H 08/01/20 11/25/23 History azaTHIOprine [Imuran] 100 mg PO DAILY 03/13/22 11/25/23 History Infliximab-Dyyb [Inflectra] 1 injection IV DIRECTED 10/15/22 11/25/23 History B Complex W-C No.20/Folic Acid 1 tab PO DAILY 03/27/23 11/25/23 History [Renal Caps Softgel] Cholecalciferol (Vitamin D3) 1 tab PO DAILY 03/27/23 11/25/23 History [Vitamin D3] Dapagliflozin Propanediol [Farxiga] 10 mg PO DAILY 03/27/23 11/25/23 History Furosemide [Lasix] 20 mg PO DAILY PRN 03/27/23 11/25/23 History Rosuvastatin [Crestor] 40 mg PO DAILY 03/27/23 11/25/23 History Turmeric Root Extract [Turmeric] 1 tab PO DAILY 03/27/23 11/25/23 History Ubidecarenone [Co Q-10] 200 mg PO HS 03/27/23 11/25/23 History Dulaglutide [Trulicity] 1.5 mg INJ WEEKLY 11/25/23 11/25/23 History Allergies Allergy/AdvReac Type Severity Reaction Status Date / Time bee venom protein (honey bee) Allergy Swelling Verified 11/25/23 10:01 Exam Vital Signs Temp Pulse Resp BP Pulse Ox 11/25/23 10:07 97.8 F 75 17 127/81 97 Intake and Output 11/24/23 11/25/23 11/25/23 22:59 06:59 14:59 Other: Weight 87.997 kg Height 4 feet 11 inches, weight 194 pounds, BMI 39.2. This is a well-developed well-nourished heavyset white female who is alert and oriented times 3 in no acute distress. HEENT: Within normal limits. NECK: Supple without mass or thyromegaly. CHEST AND LUNGS: Clear to auscultation. HEART: Regular rate and rhythm. BREASTS: Are without mass or discharge. AXILLARY EXAM: Negative for adenopathy. BACK: Negative for CVA tenderness. ABDOMEN: Soft, nontender, without palpable masses. PELVIC EXAM: Normal external genitalia with mild atrophy. Cervix and vagina appear normal mild atrophy. There is no unusual discharge. There is no evidence of prolapse. The uterus is midposition, nongravid size and nontender. There are no palpable adnexal masses or tenderness. RECTAL EXAM:. rectovaginal exam is negative for mass or tenderness and is negative for occult blood. EXTREMITIES: Nontender. IMPRESSION: 1. 57-year-old menopausal female with normal gynecologic exam. 2. History of osteoporosis managed by her audiometric technician and is currently getting Reclast infusions yearly. 3. Family history of breast cancer in her mother and sister. The patient has declined genetic cancer testing in the past. PLAN: 1. Pap smear was deferred since she had a negative Pap smear cotest on 10/15/2022. 2. Self breast awareness was discussed with the patient. We have also discussed symptoms associated with inflammatory breast cancer. 3. Screening mammogram will be done today. 4. Osteoporosis management was discussed. I have stressed the importance of adequate calcium, vitamin D and regular exercise. Recommended amounts of calcium and vitamin D were also discussed. She will continue Reclast infusions ordered through her audiometric technician. She will also do bone density testing through her audiometric technician or PCP as she has done in the past. 5. She was advised to return in one year for her annual well woman exam.
--- NOTE | 2023-11-26 20:20 | MM ---
Reason for Exam: Screening (asymptomatic). Last mammogram was performed 1 year(s) and 1 month(s) ago. Patient History: Menarche at age 10. Patient has no children. Postmenopausal. Previous chemotherapy. Sister had breast cancer, age 59. Mother had breast cancer, age 67. Risk Values: Marv 5 year model risk: 4.7%. NCI Lifetime model risk: 27.3%. Prior Study Comparison: 08/01/2020 Bilateral Screening Mammogram, [facility]. 10/08/2021 Bilateral Screening Mammogram, [facility]. 10/15/2022 Bilateral MG 3D screening mammo w/cad, [facility]. Tissue Density: There are scattered fibroglandular densities. Findings: Analyzed By CAD. Unchanged grouped calcifications on the left. There is no suspicious group of microcalcifications or new suspicious mass in either breast. Overall Assessment: Benign, BI-RAD 2 Management: Screening Mammogram of both breasts in 1 year. SEE NOTE BELOW IN REGARDS TO PATIENT'S INCREASED 5 YEAR MARV SCORE AND INCREASED LIFETIME RISK SCORE. Patient should continue monthly self-breast exams. A clinical breast exam by your physician is recommended on an annual basis. This exam should not preclude additional follow-up of suspicious palpable abnormalities. Note on Marv scores and lifetime risk: 1. A Marv score greater than 3% is considered moderate risk. If this is the case, consider specialist referral to assess eligibility for a risk reducing agent. 2. If overall lifetime risk for the development of breast cancer is 20% or higher, the patient may qualify for future screening with alternating mammogram and breast MRI. Electronically signed and approved by: Kimberly Baldwin M.D. Radiologist
== END ==
LOC: WWCWWP 09:52
PROVIDERS: ATTEND Obstetrics & Gynecology
DX: Z12.31 Encounter for screening mammogram for malignant neoplasm of breast (principal); E11.9 Type 2 diabetes mellitus without complications; K21.9 Gastro-esophageal reflux disease without esophagitis; E78.5 Hyperlipidemia, unspecified; I10 Essential (primary) hypertension; E03.9 Hypothyroidism, unspecified; K58.9 Irritable bowel syndrome, unspecified; M81.0 Age-related osteoporosis without current pathological fracture; G56.00 Carpal tunnel syndrome, unspecified upper limb; R92.323 Mammographic fibroglandular density, bilateral breasts; R92.1 Mammographic calcification found on diagnostic imaging of breast; Z90.49 Acquired absence of other specified parts of digestive tract; Z78.0 Asymptomatic menopausal state; Z79.624 Long term (current) use of inhibitors of nucleotide synthesis; Z79.84 Long term (current) use of oral hypoglycemic drugs; Z79.85 Long-term (current) use of injectable non-insulin antidiabetic drugs; Z79.890 Hormone replacement therapy; Z80.3 Family history of malignant neoplasm of breast; Z91.030 Bee allergy status
CPT/HCPCS: 77063; 77067

== ENCOUNTER → 2024-02-22 | Outpatient (CLI) | payer OTHER ==
[2024-02-22] MEDS: SODIUM CHLORIDE 0.9% 500 ML 500 ML in EMPTY BAG 1 BAG IV PRN (14:18)
[2024-02-22] MEDS: ZOLEDRONIC ACID 5 MG in SODIUM CHLORIDE 0.9% 100 ML IV NR (14:23)
[2024-02-22 14:48] VITALS: BP 121/79; PULSE 81; RESP 16; TEMP 98.2
== END ==
LOC: PROCWHC3 13:56
PROVIDERS: ATTEND Internal Medicine
DX: M81.0 Age-related osteoporosis without current pathological fracture (principal)
CPT/HCPCS: 96365; J3489

== ENCOUNTER 2024-03-02 13:07 | Day surgery (SDC) | payer OTHER ==
--- NOTE | 2024-03-01 09:16 | P.HPOR ---
History of Present Illness H&P Date: 03/01/24 Subjective: This is a 57 year old female that presents today for follow up evaluation regarding a several year history of progressively worsening bilateral thumb pain located at the base of the thumb with the right being worse than the left as well and bilateral hand numbness and tingling that is worse on the left side. She underwent thumb CMC steroid injection on the right side and noticed some moderate improvement. She states she is noticing more significant numbness or tingling on the left hand and arm. Physical Examination: LUE: AIN/PIN/Radial/Ulnar/Median motor intact. Radial/Ulnar/Median SILT. 2+/4 Radial/Ulnar pulses palpated. 5/5 APB, 5/5 FDI. Negative Finkelsteins, positive CMC grind, positive Durkan's compression. Positive tinels over cubital tunnel. RUE: AIN/PIN/Radial/Ulnar/Median motor intact. Radial/Ulnar/Median SILT. 2+/4 Radial/Ulnar pulses palpated. 5/5 APB, 5/5 FDI. Negative Finkelsteins, positive CMC grind, negative Durkan's compression. EMG/NCV: Left severe carpal tunnel syndrome, right moderate carpal tunnel syndrome. Bilateral moderate cubital tunnel syndrome. Impression: 1.) Right thumb CMC arthritis 2.) B/l Carpal tunnel syndrome 3.) B/L Cubital tunnel syndrome Plan: Diagnosis and treatment options were discussed with the patient. She would like to proceed with left endoscopic vs open carpal tunnel release and left open cubital tunnel release for her worsening symptoms after having failed conservative treatment. Risks and benefits of surgery including bleeding, infection, damage to surrounding tissue, need for further surgery, possible need to convert to open procedure, residual numbness were discussed and the patient wished to go forward with surgery.The patient was agreeable with this plan. CC: Gian Rodriguez MD -Matt Morris DO Orthopedic Hand/Upper Extremity Surgeon Past Medical History Past Medical History: Asthma, Diabetes Mellitus, GERD/Reflux, Hyperlipidemia, Hypertension, Osteoarthritis (OA), Thyroid Disorder Additional Past Medical History / Comment(s): Type 2 diabetes, ulcerative colitis,IBS, carpal tunnel syndrome, herniated disc, osteoporosis (on Reclast since 2021), and hypothyroidism. History of Any Multi-Drug Resistant Organisms: None Reported Past Surgical History: Cholecystectomy, Orthopedic Surgery Additional Past Surgical History / Comment(s): lt trigger thumb, laparoscopy, colonoscopies and upper endoscopy 2021 Past Anesthesia/Blood Transfusion Reactions: Postoperative Nausea & Vomiting (PONV) Smoking Status: Never smoker - Past Family History Mother Family Medical History: Cancer, Coronary Artery Disease (CAD), Myocardial Infarction ([place]) Additional Family Medical History / Comment(s): breast cancer, CABG 5 vessels Father Family Medical History: Cancer, Congestive Heart Failure (CHF), Diabetes Mellitus Additional Family Medical History / Comment(s): prostate cancer Brother(s) Family Medical History: Myocardial Infarction ([place]) Sister(s) Family Medical History: Cancer, Hypertension, Neurologic Disorder Additional Family Medical History / Comment(s): MS and breast cancer. Medications and Allergies Home Medications Medication Instructions Recorded Confirmed Type Ascorbic Acid [Vitamin C with Nina 1,000 mg PO DAILY 04/07/19 03/01/24 History Hips] Cetirizine HCl [Zyrtec] 10 mg PO DAILY 04/07/19 03/01/24 History Gabapentin [Neurontin] 300 mg PO BID 04/07/19 03/01/24 History Levothyroxine Sodium [Synthroid] 25 mcg PO QAM 04/07/19 03/01/24 History Losartan [Cozaar] 50 mg PO QAM 04/07/19 03/01/24 History Montelukast [Singulair] 10 mg PO HS 04/07/19 03/01/24 History Multivitamin [Multivitamins Adult 1 each PO DAILY 04/07/19 03/01/24 History Gummies] Omeprazole [PriLOSEC] 20 mg PO AC-BRKFST 04/07/19 03/01/24 History Repaglinide 0.5 mg PO BID 04/07/19 03/01/24 History Wheat Dextrin [Benefiber] 1 each PO DAILY 04/07/19 03/01/24 History Calcium Carbonate/Vitamin D3 1 each PO QAM 08/01/20 03/01/24 History [Calcium 600 mg-Vit D3 10Mcg (400 Unit)] Ibuprofen 800 mg PO Q8H PRN 08/01/20 03/01/24 History azaTHIOprine [Imuran] 100 mg PO HS 03/13/22 03/01/24 History Infliximab-Dyyb [Inflectra] 1 injection IV DIRECTED 10/15/22 03/01/24 History B Complex W-C No.20/Folic Acid 1 tab PO DAILY 03/27/23 03/01/24 History [Renal Caps Softgel] Cholecalciferol (Vitamin D3) 1 tab PO DAILY 03/27/23 03/01/24 History [Vitamin D3] Dapagliflozin Propanediol [Farxiga] 10 mg PO DAILY 03/27/23 03/01/24 History Rosuvastatin [Crestor] 40 mg PO DAILY 03/27/23 03/01/24 History Turmeric Root Extract [Turmeric] 1 tab PO DAILY 03/27/23 03/01/24 History Ubidecarenone [Co Q-10] 200 mg PO HS 03/27/23 03/01/24 History Dulaglutide [Trulicity] 1.5 mg INJ NAJERA 11/25/23 03/01/24 History Celecoxib [CeleBREX] 200 mg PO DAILY 03/01/24 03/01/24 History Challenge-3 Fatty Acids/Fish Oil 1 each PO DAILY 03/01/24 03/01/24 History [Challenge-3 Fish Oil 1,200 mg Sfgl] Zoledronic Acid 5Mg/100Ml Pmx 0 mg IVPB [id number] 03/01/24 03/01/24 History [Reclast] Allergies Allergy/AdvReac Type Severity Reaction Status Date / Time bee venom protein (honey bee) Allergy Swelling Verified 03/01/24 08:31 Physical Examination Osteopathic Statement: *. No significant issues noted on an osteopathic structural exam other than those noted in the History and Physical/Consult.
[~2024-03-02 13:07] MED LIST changes: +HYDROmorphone 0.5 MG/0.5 ML SYRINGE IVP PRN; +LACTATED RINGERS 1,000 ML IV SCH; +LIDOCAINE 1% (10MG/ML) FOR IV START INTRADERMA PRN; +Pre Op ABX Message 1 EACH MISC MISCELLANE ONE; -SODIUM CHLORIDE 0.9% 500 ML 500 ML in EMPTY BAG 1 BAG IV PRN; -ZOLEDRONIC ACID 5 MG in SODIUM CHLORIDE 0.9% 100 ML IV NR
[2024-03-02] MEDS: LACTATED RINGERS 1,000 ML IV ONE (13:45)
[2024-03-02 14:02] LABS: Glucose,Whole Blood 99 mg/dL (70-110)
[2024-03-02] MEDS: ONDANSETRON 4 MG/2 ML VIAL IVP ONE (14:05)
[2024-03-02] MEDS ORDERED: MIDAZOLAM 2 MG/2 ML VIAL ONE (14:44)
[2024-03-02] MEDS ORDERED: SUCCINYLCHOLINE CHLORIDE 200 MG/10 ML VIAL IV ONE (14:44)
[2024-03-02] MEDS ORDERED: PROPOFOL 10 MG/ML 20 ML VIAL IV ONE (14:44)
[2024-03-02] MEDS ORDERED: HYDROmorphone (PF) 1 MG/ML ONE (14:44)
[2024-03-02] MEDS ORDERED: fentaNYL (PF) 50 MCG/ML 2 ML AMP ONE (14:44)
[2024-03-02] MEDS ORDERED: LIDOCAINE 1% INJ 10MG/ML (20 ML MDV) ONE (14:44)
[2024-03-02] MEDS: LIDOCAINE 2% (PF) 20 MG/ML 10 ML AMP SQ ONE (15:40)
[2024-03-02] MEDS: BUPIVACAINE (PF) 0.5% 30 ML VIAL SQ ONE (15:40)
--- NOTE | 2024-03-02 16:01 | P.OP ---
Date of Procedure: 03/02/24 Preoperative Diagnosis: 1.) Left carpal tunnel syndrome 2.) Left cubital tunnel syndrome Postoperative Diagnosis: 1.) Left carpal tunnel syndrome 2.) Left cubital tunnel syndrome Procedure(s) Performed: 1.) Left endoscopic carpal tunnel release 2.) Left open cubital tunnel release, in situ. Anesthesia: MARLINEA Surgeon: Matt Morris Estimated Blood Loss (ml): 0 Pathology: none sent Condition: stable Disposition: PACU Description of Procedure: This is a 58 year old female who presented today for a left endoscopic carpal tunnel release and open cubital tunnel release after having failed conservative treatment. Risks and benefits of surgery were discussed with the patient includi ng bleeding, damage to surrounding tissue, infection, need for further surgery as well as risks of anesthesia including pulmonary embolism and even and the patient wished to proceed with surgical intervention. The patient was seen in the pre-operative area by myself. Consent and H&P were completed and updated. The correct extremity was marked in the pre-operative area by myself and all other questions were answered. Operative Narrative: The patient was brought to the operating room by the department of anesthesia. They remained on the portable stretcher and a rolling hand table was brought to the side of the operative extremity. Pre-operative time out was performed indicating the correct patient, procedure and laterality. All in the room agreed. Pre-operative antibiotics were given prior to skin incision. The patient was then drifted off to sleep by the department of anesthesia. A nonsterile tourniquet was then applied to the operative extremity and the left upper extremity was then prepped and draped in normal sterile fashion. The operative extremity was the exsanguinated with an esmarch bandage and the tourniquet was inflated to 250mmHg. 15 blade scalpel was utilized to make a transverse incision on the palmar skin just ulnar to the palmaris longus tendon at the level of the distal wrist crease. Ragnell retractor was then placed radially and blunt dissection was performed to reveal the distal forearm fascia. This was lifted with fine Manjeet pick ups and Littler tenotomy scissors were then used to open the forearm fascia transversely and a double skin hook was then placed. Hamate finder was placed into the carpal tunnel and then sequential sized dilators were inserted followed by the synovial elevator to separate the flexor tenosynovium from the undersurface of the transverse carpal ligament and a washboard texture was felt. The MicroAire endoscopic carpal tunnel release system gun was the then inserted into the carpal tunnel hugging the deep portion of the transverse carpal ligament in line with the base of the ring finger. Transverse fibers of the ligament were directly visualized. Pressure was applied on the palm to reveal the distal extent of the transverse carpal ligament. The blade was then deployed and the distal half of the transverse carpal ligament was released. The scope was then brought distal again and remaining transverse fibers were incised with the blade. The proximal half of the transverse carpal ligament was then divided and again the scope was advanced distal and remaining transverse fibers were incised with the blade. The radial and ulnar leaflets were directly visualized and mobile consistent with complete release. Tenotomy scissors were then utilized to release the remaining distal forearm fascia under direct visu alization taking care to preserve the palmar cutaneous branch of the median nerve. Attention was brought to the medial elbow. 15 blade scalpel was used to incise skin in between the medial epicondyle and olecranon in a curvlinear and longitudinal fashion. Blunt dissection was taken down through subcutaneous tissue with tenotomy scissors and branches of the MABCN were identified and protected. Dissection was carried proximally and the ulnar nerve was identified and released of its surrounding soft tissue attachments proximally. Dissection was then carried distally and barksdale's ligament was released at the medial epicondyle, the nerve appeared compressed at this location. Dissection was then carried out further distal and the fascia of the two heads of the FCU were incised and the ulnar nerve was decompressed with Lee and tenotomy scissors and appeared to be tension free. The elbow was the flexed and extended and the ulnar nerve appeared to be stable in a tension free manner 20cc's 0.5% bupivacaine was injected into the subcutaneous tissues. Skin closure was performed with interrupted 4-0 Monocryl sutures followed by running 4-0 Monocryl sutures, tourniquet was then let down and the hand had immediate perfusion. The patient was then woken by the department of anesthesia and transferred to PACU in stable condition. Matt Morris D.O. Orthopedic Hand/Upper Extremity Surgeon
[2024-03-02 16:15] VITALS: RESP 16; TEMP 97
[2024-03-02 16:56] VITALS: BP 126/84; PULSE 72
== END 2024-03-02 17:07 | disposition home or self-care (01) ==
LOC: OR 13:07
PROVIDERS: ATTEND Orthopaedic Surgery Hand Surgery
DX: G56.03 Carpal tunnel syndrome, bilateral upper limbs (principal); G56.23 Lesion of ulnar nerve, bilateral upper limbs; M19.041 Primary osteoarthritis, right hand; K58.9 Irritable bowel syndrome, unspecified; E03.9 Hypothyroidism, unspecified; E11.9 Type 2 diabetes mellitus without complications; E78.5 Hyperlipidemia, unspecified; I10 Essential (primary) hypertension; J45.909 Unspecified asthma, uncomplicated; K21.9 Gastro-esophageal reflux disease without esophagitis; G47.33 Obstructive sleep apnea (adult) (pediatric); L98.499 Non-pressure chronic ulcer of skin of other sites with unspecified severity; Z79.890 Hormone replacement therapy; Z79.84 Long term (current) use of oral hypoglycemic drugs; Z79.1 Long term (current) use of non-steroidal anti-inflammatories (NSAID); Z90.49 Acquired absence of other specified parts of digestive tract; Z91.030 Bee allergy status; Z79.899 Other long term (current) drug therapy; Z79.85 Long-term (current) use of injectable non-insulin antidiabetic drugs
CPT/HCPCS: 29848; 64718; J2001; J2405; J0665

== ENCOUNTER → 2024-10-21 | Outpatient (CLI) | payer OTHER | END | disposition home or self-care (01) | LOC: LABWHC1 12:37 | PROVIDERS: ATTEND Family Medicine | DX: E11.9 Type 2 diabetes mellitus without complications (principal) | CPT/HCPCS: 36415; 83036 ==

== ENCOUNTER → 2024-12-13 | Outpatient (CLI) | payer OTHER ==
[2024-12-13 11:44] VITALS: BP 120/78; PULSE 96; RESP 16; TEMP 97.3
--- NOTE | 2024-12-13 11:53 | P.HPOB ---
History of Present Illness H&P Date: 12/13/24 Chief Complaint: The patient is here for her routine gynecologic exam and ma mmogram. This is a 59-year-old G0 with an LMP of 1999. The patient is without gynecologic complaints. Review of Systems Has been stable. She denies respiratory or cardiac problems. GI: Occasional gassy feeling and history of colitis. Past Medical History Past Medical History: Diabetes Mellitus, GERD/Reflux, Hyperlipidemia, Hyp ertension, Thyroid Disorder Additional Past Medical History / Comment(s): Type 2 diabetes, ulcerative colitis,IBS, eczema rash, carpal tunnel syndrome, herniated disc, osteoporosis (on Reclast since 2021), and hypothyroidism. 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 Premature menopause in her 30s. History of Any Multi-Drug Resistant Organisms: None Reported Past Surgical History: Cholecystectomy, Orthopedic Surgery Additional Past Surgical History / Comment(s): lt trigger thumb, laparoscopy, colonoscopy and upper endoscopy 2021(next colonoscopy after 3yr). Left carpal tunnel surgery and left elbow release. Past Anesthesia/Blood Transfusion Reactions: Postoperative Nausea & Vomiting (PONV) Past Psychological History: No Psychological Hx Reported Smoking Status: Never smoker Past Alcohol Use History: Rare (0-2 drinks per year.) Past Drug Use History: None Reported Additional History: She is single is not sexually active. 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 - Past Family History Mother Family Medical History: Cancer, Coronary Artery Disease (CAD), Myocardial Infarction ([place]) Additional Family Medical History / Comment(s): breast cancer, CABG 5 vessels Father Family Medical History: Cancer, Congestive Heart Failure (CHF), Diabetes Mellitus, Renal Disease Additional Family Medical History / Comment(s): prostate cancer. . Brother(s) Family Medical History: Myocardial Infarction ([place]) Sister(s) Family Medical History: Cancer, Hypertension, Neurologic Disorder Additional Family Medical History / Comment(s): MS and breast cancer. Medications and Allergies Home Medications Medication Instructions Recorded Confirmed Type Ascorbic Acid [Vitamin C with Nina 1,000 mg PO DAILY 04/07/19 03/02/24 History Hips] Gabapentin [Neurontin] 300 mg PO BID 04/07/19 03/02/24 History Levothyroxine Sodium [Synthroid] 25 mcg PO QAM 04/07/19 03/02/24 History Losartan [Cozaar] 50 mg PO QAM 04/07/19 03/02/24 History Montelukast [Singulair] 10 mg PO HS 04/07/19 03/02/24 History Multivitamin [Multivitamins Adult 1 each PO DAILY 04/07/19 03/02/24 History Gummies] Omeprazole [PriLOSEC] 20 mg PO AC-BRKFST 04/07/19 03/02/24 History Wheat Dextrin [Benefiber] 1 each PO DAILY 04/07/19 03/02/24 History Calcium Carbonate/Vitamin D3 1 each PO QAM 08/01/20 03/02/24 History [Calcium 600 mg-Vit D3 10Mcg (400 Unit)] Ibuprofen 800 mg PO Q8H PRN 08/01/20 03/02/24 History azaTHIOprine [Imuran] 100 mg PO HS 03/13/22 03/02/24 History Cholecalciferol (Vitamin D3) 1 tab PO DAILY 03/27/23 03/02/24 History [Vitamin D3] Dapagliflozin Propanediol [Farxiga] 10 mg PO DAILY 03/27/23 03/02/24 History Rosuvastatin [Crestor] 40 mg PO DAILY 03/27/23 03/02/24 History Ubidecarenone [Co Q-10] 200 mg PO HS 03/27/23 03/02/24 History Dulaglutide [Trulicity] 1.5 mg INJ NAJERA 11/25/23 03/02/24 History Celecoxib [CeleBREX] 200 mg PO DAILY 03/01/24 03/02/24 History [place]-3 Fatty Acids/Fish Oil 1 each PO DAILY 03/01/24 03/02/24 History [[place]-3 Fish Oil 1,200 mg Sfgl] Zoledronic Acid 5Mg/100Ml Pmx 0 mg IVPB Q365D 03/01/24 03/02/24 History [Reclast] Cyanocobalamin [Vitamin B-12] 500 mcg PO DAILY 12/13/24 12/13/24 History Pioglitazone [Actos] 15 mg PO DAILY 12/13/24 12/13/24 History Allergies Allergy/AdvReac Type Severity Reaction Status Date / Time bee venom protein (honey bee) Allergy Swelling Verified 03/02/24 13:50 Exam Vital Signs Temp Pulse Pulse Resp BP 12/13/24 11:32 97.3 F L 70 96 16 120/78 Intake and Output 12/12/24 12/13/24 12/13/24 22:59 06:59 14:59 Other: Weight 88.451 kg Height 4 feet 11 inches, weight 195 pounds, BMI 39.4. This is a well-developed well-nourished white female who is alert and oriented times 3 in no acute distress. HEENT: Within normal limits. NECK: Supple without mass or thyromegaly. CHEST AND LUNGS: Clear to auscultation. HEART: Regular rate and rhythm. BREASTS: Are without mass or discharge. AXILLARY EXAM: Negative for adenopathy. BACK: Negative for CVA tenderness. ABDOMEN: Soft, nontender, without palpable masses. PELVIC EXAM: Normal external genitalia with mild atrophy. Cervix and vagina appear normal with mild atrophy. There is no unusual discharge. There is no evidence of prolapse. The uterus is midposition, nongravid size and nontender. There are no palpable adnexal masses or tenderness. Patient is somewhat limited secondary to her size. RECTAL EXAM: Rectovaginal exam is negative for mass or tenderness and is negative for occult blood. EXTREMITIES: Nontender. IMPRESSION: 1. 59-year-old menopausal with normal gynecologic exam. 2. History of osteoporosis and she has been on Reclast since 2021 through her crm coordinator. 3. Family history of breast cancer in her mother and sister. She has declined genetic cancer testing in the past. PLAN: 1. Pap smear was deferred since she had a negative Pap smear cotest on 10/15/2022. 2. Self breast awareness was discussed with the patient. We have also discussed symptoms associated with inflammatory breast cancer. 3. Mammogram will be done today. 4. Osteoporosis management was discussed. I have stressed the importance of adequate calcium, vitamin D and regular exercise. Dr. Contreras, her crm coordinator, will continue to prescribe her osteoporosis medication and order bone density testing. She states she is planning to have another bone density test through him in January of this year. 5. She was advised to return in one year for her annual well woman exam.
--- NOTE | 2024-12-13 12:28 | MM ---
Reason for Exam: Screening (asymptomatic). Last mammogram was performed 1 year(s) and 1 month(s) ago. Patient History: Menarche at age 10. Patient has no children. Postmenopausal. Previous chemotherapy. Sister had breast cancer, age 59. Mother had breast cancer, age 67. Risk Values: Shameka 5 year model risk: 5.1%. NCI Lifetime model risk: 26.2%. Prior Study Comparison: 10/08/2021 Bilateral Screening Mammogram, [facility]. 10/15/2022 Bilateral MG 3D screening mammo w/cad, [facility]. 11/25/2023 Bilateral MG 3D screening mammo w/cad, [facility]. Tissue Density: There are scattered areas of fibroglandular density. Findings: Analyzed By CAD. A few tiny benign-appearing round calcifications throughout the left breast are redemonstrated. There is no suspicious group of microcalcifications or new suspicious mass in either breast. Overall Assessment: Benign, BI-RAD 2 Management: Screening Mammogram of both breasts in 1 year. . Patient should continue monthly self-breast exams. A clinical breast exam by your physician is recommended on an annual basis. This exam should not preclude additional follow-up of suspicious palpable abnormalities. Note on Shameka scores and lifetime risk: 1. A Shameka score greater than 3% is considered moderate risk. If this is the case, consider specialist referral to assess eligibility for a risk reducing agent. 2. If overall lifetime risk for the development of breast cancer is 20% or higher, the patient may qualify for future screening with alternating mammogram and breast MRI. [facility], , 12/13/2024 12:25 PM. Electronically signed and approved by: Bahman Larkin M.D.
== END ==
LOC: WWCWWP 10:58
PROVIDERS: ATTEND Obstetrics & Gynecology
DX: Z12.31 Encounter for screening mammogram for malignant neoplasm of breast (principal); Z80.3 Family history of malignant neoplasm of breast; Z92.21 Personal history of antineoplastic chemotherapy; Z91.030 Bee allergy status
CPT/HCPCS: 77063; 77067